=== PATIENT | male | born 1975 | race Caucasian/White ===

== ENCOUNTER 2018-07-27 09:43 | Emergency (ER) | payer MEDICARE, MEDICAID ==
[~2018-07-27] VITALS: Ht 182.9 cm; Wt 86.4 kg
[2018-07-27 09:56] VITALS: BP 132/90
--- NOTE | 2018-07-27 10:33 | NUR ---
KVNG MEEKS AT BEDSIDE.
[2018-07-27] MEDS ORDERED: CLON-527 PO (10:37)
[2018-07-27] MEDS ORDERED: AMPH20TA3 PO (10:37)
== END 2018-07-27 10:48 | disposition home or self-care (01) ==
LOC: ER 09:45
DX: F41.9 Anxiety disorder, unspecified (principal); Z76.0 Encounter for issue of repeat prescription; Z56.0 Unemployment, unspecified
CPT/HCPCS: 99283

== ENCOUNTER 2018-09-13 13:25 | Inpatient (IN) | payer MEDICARE, MEDICAID ==
[~2018-09-13] VITALS: Ht 172.7 cm; Wt 83.8 kg
[~2018-09-13 13:25] MED LIST: AMPH20TA3 PO; GABA600T13 PO; OLAN10TA3 PO
[2018-09-13] MEDS ORDERED: mag hydrox/Alum hydrox/simeth 30ml oral suspension PO PRN (13:45)
[2018-09-13] MEDS ORDERED: loperamide 2mg capsule PO PRN (13:45)
[2018-09-13] MEDS ORDERED: tuberculin, purif. prot. deriv. 5 units/0.1ml ID ONE (13:45)
[2018-09-13] MEDS ORDERED: magnesium hydroxide 30ml (MOM) UD suspension PO PRN (13:45)
--- NOTE | 2018-09-13 15:39 | NUR ---
Admit note: Pt admitted to [facility] on a 5150 for depression at 1420 as danger to self. Pt reports he is suffering from auditory hallucinations that tell him to kill himself. Pt reports feeling suicidal as a direct result of the voices. Pt brought to room 330A. Pt oriented to the unit. Pt cooperative with the admission process. Pt oriented to the unit. Medication rec completed.
[2018-09-13 15:57] VITALS: BP 130/91
--- NOTE | 2018-09-13 17:22 | NUR ---
ADDITIONAL ADMIT INFORMATION The patient's brother Felton Storm can be contacted at these numbers. [phone] or [phone]. The patient lives with his brother. According to patient's brother he had been living in [place] until June of this year and it became apparent he was "going downhill", so his brother Felton transported him from [place] and accepted him into his home. The patient started hearing voices in 2009. He from his and had multiple suicide attempts due to the unrelenting "tormenting voices." Brother states he isolates to his room a lot and is non violent. He sees Dr. 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
[2018-09-13 19:00] VITALS: BP 134/99
[2018-09-13] MEDS: hydrOXYzine 25 MG tablet PO PRN (19:26)
[2018-09-13] MEDS: LORazepam 1 MG tablet PO PRN (20:32)
[2018-09-13] MEDS: gabapentin 300mg capsule PO SCH (20:32)
[2018-09-13] MEDS: olanzapine 10mg tablet PO SCH (20:33)
--- NOTE | 2018-09-14 03:38 | NUR ---
Nursing Progress Note: Legal hold: 5150 Client on voluntary/involuntary status for DTS Report received from ALFONSO Orlando with use of SBAR. Why are they here: Pt admitted to [place] for [facility] on a 5150 for depression at 1420 as danger to self. Pt reports he is suffering from auditory hallucinations that tell him to kill himself. Pt reports feeling suicidal as a direct result of the voices. Assessment What has happened this shift: Patient is in his room at the change of shift. He presents as depressed AED making poor eye contact, talking very softly and when asked stating "I always experience depression." He states he has depression that sits at 4/10 at all times. He currently denies SI/HI, AH/VH this shift. He requests a dressing be placed on his arm where he has multiple self inflicted wells. Area is clean, antibiotic ointment is applied and Optifoam dressing applied to area. Patient is instructed to not pick at the area and that if he feels the urge, to find a staff member, patient verbally agrees. A late dinner tray is brought up to patient he happily accepts it. He remains in his room the remainder of the shift before turning to bed. S/I, H/I: Denies A/VH: Denies Sleep: Currently sleeping, see sleep assessment ADL's:Independent Group attendance: No groups this shift Were meds taken: Yes Any med S/E None noted Mental Status Exam Appearance: Clean, well groomed Eye contact: Fair Behavior: Isolative Speech: Normal volume, rate, rhythm Mood: Depressed Affect: Congruent to mood Thought process: Linear Thought Content: Focused on wound care/food Cognition: A & Ox4 Insight: Fair Judgment: Poor Interventions PRN's used: Atarax, Ativan Therapeutic interventions: 1:1 assessment , unit procedure education, medication administration/monitoring/education, encouragement to attend groups, therapeutic conversation & establishment of rapport, symptom identification and management, Q 15 min checks. Restraints/seclusion/emergency medication: None Justification of Continued Inpatient Treatment: Therapeutic support and medication management needed to provide stabilization, and prevent decompensation decreasing risk to patient for readmittance to in-patient unit.
[2018-09-14 07:59] LABS: CHOL/HDL RATIO 6.8 (0.00-4.99); CHOLESTEROL 238 MG/DL (0-200); HDL CHOLESTEROL 35 MG/DL (35-60); LDL CHOLESTEROL 170 MG/DL (50-100); TRIGLYCERIDES 186 MG/DL (20-135)
[2018-09-14 08:00] VITALS: BP 121/74
[2018-09-14] MEDS: gabapentin 300mg capsule PO SCH ×4 (08:06→20:50)
[2018-09-14 08:09] LABS: HEMOGLOBIN A1C 5.9 % (4.5-6.2)
[2018-09-14] MEDS: nicotine 21mg patch - 24 hr TD SCH (12:42)
[2018-09-14] MEDS: hydrOXYzine 25 MG tablet PO PRN (16:36)
--- NOTE | 2018-09-14 17:14 | NUR ---
Nursing Progress Note: Legal hold: 5150 Client on involuntary status for DTS Report received from ALFONSO Mcguire with use of SBAR. Why are they here: Pt admitted to [facility] on a 5150 for depression at 1420 for DTS. Pt reports he is suffering from auditory hallucinations that tell him to kill himself. Pt reports feeling suicidal as a direct result of the voices. Assessment What has happened this shift: Pt asleep at start of shift. Pt up to shower then to eat. Pt attended am group. He reports he continues to hear voices denies SI this morning. Pt presents w/flat depressed affect. Pt is quiet, isolates, walks slow w/his head down. Poor eye contact. New drsg applied to wells on left FA. Provided education on RALF encouraging him to keep all open areas covered and to not back any new sores. S/I, H/I: Denies; states when he is in a hospital they dont tell me to hurt myself. A/VH: Denies Sleep: SEE sleep assessment provided in EHR ADL's: Independent Group attendance: Yes w/prompting Were meds taken: Yes Any med S/E: None noted or reported Mental Status Exam Appearance: Clean, well groomed Eye contact: Poor Behavior: Isolative Speech: low volume, rate, rhythm Mood: Depressed Affect: restricted, congruent to mood Thought process: Linear Thought Content: unknown; appears to be RIS Cognition: A & Ox4 Insight: Fair Judgment: Poor Interventions PRN's used: Therapeutic interventions: 1:1 assessment , unit procedure education, medication administration/monitoring/education, encouragement to attend groups, therapeutic conversation & establishment of rapport, symptom identification and management, Q 15 min checks. Restraints/seclusion/emergency medication: None Justification of Continued Inpatient Treatment: Therapeutic support and medication management needed to provide stabilization of current A/H telling him to hurt and kill himself also prevent decompensation decreasing risk to patient for readmittance to in-patient unit.
[2018-09-14 19:00] VITALS: BP 130/89
[2018-09-14] MEDS: LORazepam 1 MG tablet PO PRN (20:50)
[2018-09-14] MEDS: olanzapine 10mg tablet PO SCH (20:50)
[2018-09-14] MEDS: acetaminophen 325mg tablet PO PRN (20:51)
--- NOTE | 2018-09-14 20:51 | NUR ---
Nicotine Patch: Nicotine patch is removed and discarded @2049.
--- NOTE | 2018-09-15 03:29 | NUR ---
Nursing Progress Note: Legal hold: 5150 Client on involuntary status for DTS Report received from ALFONSO Orlando with use of SBAR. Why are they here: Pt admitted to [facility] on a 5150 for depression at 1420 for DTS. Pt reports he is suffering from auditory hallucinations that tell him to kill himself. Pt reports feeling suicidal as a direct result of the voices. Assessment What has happened this shift: Patient stays in room and isolates all this shift. He sits in his room in the dark and does not interact with others. He denies current SI, Hi, VH. He states he is having AH but the voces are " Ho hum, boring voices" today. His wells on his harm are bandaged and the dressing is CDI. He has complaints of lower back/hip pain to his left side, Tylenol 650 mg is administered with good effect. He is compliant with all his evening medications. S/I, H/I: Denies A/VH: Denies VH, Confirms AH States they are "Ho hum, boring voices." They are not telling him to harm himself today. Sleep: Currently sleeping, see sleep assessment ADL's: Independent Group attendance: No groups this shift Were meds taken: Yes Any med S/E: None noted or reported Mental Status Exam Appearance: Clean, well groomed Eye contact: Poor Behavior: Isolative Speech: Low volume, rate, rhythm Mood: Depressed Affect: Restricted, congruent to mood Thought process: Linear Thought Content: Unknown; appears to be RIS Cognition: A & Ox4 Insight: Fair Judgment: Poor Interventions PRN's used: Tylenol, Ativan Therapeutic interventions: 1:1 assessment , unit procedure education, medication administration/monitoring/education, encouragement to attend groups, therapeutic conversation & establishment of rapport, symptom identification and management, Q 15 min checks. Restraints/seclusion/emergency medication: None Justification of Continued Inpatient Treatment: Therapeutic support and medication management needed to provide stabilization of current A/H telling him to hurt and kill himself also prevent decompensation decreasing risk to patient for readmittance to in-patient unit.
[2018-09-15 08:00] VITALS: BP 124/87
[2018-09-15] MEDS: atorvastatin 20mg tablet PO SCH (08:11)
[2018-09-15] MEDS: LORazepam 1 MG tablet PO PRN ×2 (08:11→18:00)
[2018-09-15] MEDS: gabapentin 300mg capsule PO SCH ×4 (08:11→20:25)
[2018-09-15] MEDS: OLANZAPINE 5 MG TABLET PO SCH (08:11)
[2018-09-15] MEDS: nicotine 21mg patch - 24 hr TD SCH (08:12)
[2018-09-15] MEDS: hydrOXYzine 25 MG tablet PO PRN (13:08)
--- NOTE | 2018-09-15 16:20 | NUR ---
Nursing Progress Note: Legal hold: 5150 Client on involuntary status for DTS Report received from ALFONSO Mcguire with use of SBAR. Why are they here: Pt admitted to [facility] on a 5150 for depression for DTS. Pt reports he is suffering from auditory hallucinations that tell him to kill himself. Pt reports feeling suicidal as a direct result of the voices. Assessment What has happened this shift: Pt asleep at start of shift. Pt isolates some of the shift however, with prompting and encouragement he did go to the am group and outdoors with the group in the late afternoon. He agrees the medications are helping with his voices but does not elaborate on how the medication helps. Both Ativan and hydroxyzine given as PRNs to decrease his anxiety. S/I, H/I: Denies A/VH: Denies Sleep: SEE sleep assessment ADL's: Independent Group attendance: AM and outside group Were meds taken: Yes Any med S/E: None noted or reported Mental Status Exam Appearance: Clean, well groomed Eye contact: Poor Behavior: Isolative Speech: low volume, rate, rhythm Mood: Depressed Affect: restricted, congruent to mood Thought process: Linear Thought Content: unknown; appears to be RIS Cognition: A /Ox4 Insight: Fair Judgment: Poor Interventions PRN's used: Therapeutic interventions: Therapeutic communication and active listening, medication administration/monitoring/education, encouragement to attend groups, symptom identification and management, Q 15 min checks. Restraints/seclusion/emergency medication: None Justification of Continued Inpatient Treatment: Therapeutic support and medication management needed to provide stabilization of current A/H telling him to hurt and kill himself also prevent decompensation decreasing risk to patient for readmittance to in-patient unit.
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
[2018-09-15 19:00] VITALS: BP 133/89
[2018-09-15] MEDS: olanzapine 10mg tablet PO SCH (20:25)
[2018-09-15] MEDS: acetaminophen 325mg tablet PO PRN (20:26)
--- NOTE | 2018-09-15 21:13 | NUR ---
Nursing Progress Note: Legal hold: 5150 Client on involuntary status for DTS Report received from ALFONSO Orlando with use of SBAR. Why are they here: Pt admitted to [facility] on a 5150 for depression for DTS. Pt reports he is suffering from auditory hallucinations that tell him to kill himself. Pt reports feeling suicidal as a direct result of the voices. Assessment What has happened this shift: Patient is in his room at change of shift laying in bed in the dark. He agrees to a 1:1 assessment at his bedside. His left forearm dressing is CDI at this time and no drainage or odor is noted. He denies SI/HI, and VH. He states he is still hearing voices but they are not telling him ot harm himself and that they have decreased a "tiny bit" since being on the unit. He expresses that he does feel more depressed today and rate it a 8/10, but states that going outside today helped a bit. He makes good eye contact during conversation and talks a bit more than yesterday. He joins other clients in the group room for evening snack before going back to bed. He is compliant for all evening medications. S/I, H/I: Denies A/VH: Confirms AH, denies VH Sleep: SEE sleep assessment ADL's: Independent Group attendance: No groups this shift Were meds taken: Yes Any med S/E: None noted or reported Mental Status Exam Appearance: Clean, well groomed Eye contact: Fair Behavior: Isolative Speech: low volume, rate, rhythm Mood: Depressed Affect: Restricted, congruent to mood Thought process: Linear Thought Content: Unknown; appears to be RIS Cognition: A /Ox4 Insight: Fair Judgment: Poor Interventions PRN's used: Tylenol Therapeutic interventions: Therapeutic communication and active listening, medication administration/monitoring/education, encouragement to attend groups, symptom identification and management, Q 15 min checks. Restraints/seclusion/emergency medication: None Justification of Continued Inpatient Treatment: Therapeutic support and medication management needed to provide stabilization of current A/H telling him to hurt and kill himself also prevent decompensation decreasing risk to patient for readmittance to in-patient unit.
--- NOTE | 2018-09-15 22:56 | NUR ---
Nursing Progress Note: Legal hold: 5250 Client on involuntary status for GD Report received from ALFONSO Orlando with use of SBAR. Why are they here: On September 03, 2018 client presented to [facility] with vaginal bleeding. During admission client delivered a female who is currently in NICU. Per report the clients behavior was disorganized and client made delusional statements regarding "stalkers" and the "government". Drug tox screen was positive for Meth and THC. Assessment What has happened this shift: Patient is sleeping at the change of shift. When awoken she is focused on basic needs like food and water. She presents as depressed and extremely withdrawn. She is hard to engage in conversation and even with open ended questions she responds in short one word answers. She denies SI/HI, AH/VH. She then returns to bed after eating her evening snack and promptly falls back asleep. S/I, H/I: Denies A/VH: Denies Sleep: SEE sleep assessment ADL's: Independent Group attendance: No groups this shift Were Meds taken: Yes Any med S/E: None observed Mental Status Exam Appearance: Appropriately dressed in street clothes Eye contact: Fair, keeps her gaze down most of the time Behavior: Isolative, does not interact much with others. Speech: Soft, does not engage in conversation Mood: Depressed Affect: Flat Thought process: congruent w/mood Thought Content: Preoccupied with clothes and food this shift Cognition: Poverty of content Insight: Poor Judgment: Poor Interventions PRN's used: None Therapeutic interventions: 1:1 assessment, therapeutic conversation, medication administration/education/monitoring, reality orientation, limit setting, redirection, positive reinforcement, encouragement to attend groups, Q 15 min safety checks. Restraints/seclusion/emergency medication: none Justification of Continued Inpatient Treatment: Patient continues to demonstrate poor judgment, and increasing depression. Therapeutic support and medication management needed to provide stabilization, and prevent decompensation decreasing risk to patient for readmittance to in-patient unit. Addendum: 09/15/18 at 2302 by Eleonora Mcclure RN Error, Posted in wrong patients chart.
[2018-09-16 07:23] VITALS: BP 112/84
[2018-09-16] MEDS: OLANZAPINE 5 MG TABLET PO SCH (07:47)
[2018-09-16] MEDS: gabapentin 300mg capsule PO SCH ×4 (07:48→21:01)
[2018-09-16] MEDS: nicotine 21mg patch - 24 hr TD SCH ×2 (07:49→08:12)
[2018-09-16] MEDS: atorvastatin 20mg tablet PO SCH (07:49)
[2018-09-16] MEDS: acetaminophen 325mg tablet PO PRN ×2 (07:52→21:01)
--- NOTE | 2018-09-16 16:22 | NUR ---
Nursing Progress Note: Legal hold: 5150 Client on involuntary status for DTS Report received from ALFONSO Mcguire with use of SBAR. Why are they here: Pt admitted to [facility] on a 5150 for depression at 1420 for DTS. Pt reports he is suffering from auditory hallucinations that tell him to kill himself. Pt reports feeling suicidal as a direct result of the voices. Assessment What has happened this shift: Isolated in his room for the majority of the shift. Out for meals. Eats poorly and quickly. Returns immediately to his room. When asked to explain the importance of being in his room, patient stated "Being around people makes me feel anxious." When asked the meaning behind staying in his bed, patient stated "I just lay in bed and listen to my voices." Understates the suffering he is experiences due to AH. Believes "they'll always be be there. Here I feel safe." in reference to self-harm behavior. Has no hope at present that medication will be able to diminish or eliminate the voices. States he was once happy "when I was . My ended the marriage. She didn't want to be with someone on disability." Patient does not speak unless spoken to. Also he provides the minimum amount of information to answer questions posed by staff. S/I, H/I: Denies; states when he is in a hospital they don't tell me to hurt myself. A/VH: Denies Sleep: SEE sleep assessment provided in EHR ADL's: Independent Group attendance: Not today Were meds taken: Yes Any med S/E: None noted or reported Mental Status Exam Appearance: Clean, well groomed Eye contact: Poor Behavior: Isolative Speech: low volume, rate, rhythm Mood: Depressed Affect: restricted, congruent to mood Thought process: Linear Thought Content: unknown; appears to be RIS Cognition: A & Ox4 Insight: Fair Judgment: Poor Interventions PRN's used: Therapeutic interventions: 1:1 assessment , unit procedure education, medication administration/monitoring/education, encouragement to attend groups, therapeutic conversation & establishment of rapport, symptom identification and management, Q 15 min checks. Restraints/seclusion/emergency medication: None Justification of Continued Inpatient Treatment: Therapeutic support and medication management needed to provide stabilization of current A/H telling him to hurt and kill himself also prevent decompensation decreasing risk to patient for readmittance to in-patient unit.
[2018-09-16 20:00] VITALS: BP 126/98
[2018-09-16] MEDS: hydrOXYzine 25 MG tablet PO PRN (21:01)
[2018-09-16] MEDS: OLANZapine 5mg rapidly disint. tablet PO SCH (21:02)
[2018-09-16] MEDS ORDERED: NICOTINE POLACRILEX 4 MG LOZENGE BC PRN (21:40)
--- NOTE | 2018-09-16 23:59 | NUR ---
Nursing Progress Note: Legal hold: VOL for DTS Report received from ALFONSO Orlando with use of SBAR. Why are they here: Pt admitted to [facility] on a 5150 for depression for DTS. Pt reports he is suffering from auditory hallucinations that tell him to kill himself. Pt reports feeling suicidal as a direct result of the voices. Assessment What has happened this shift: Pt in room looking out the window at change of shift. He attended HS snack then returned to his room to sleep. During 1:1, he stated "I feel 9/10 on the good scale, I am feeling better." Voices are still present, but "less and more in the background" and saying "get a job or go help others". Pt states even though the voices are making positive statements, they are irksome. Pt denies SI and says he feels a "a little anxious". He states he doesn't like going to groups because it makes him nervous that they will make him talk. RN encouraged to go, and be honest about feeling that way with the launch leader. Left forearm dressing CDI. He requested an additional snack before turning in to sleep for the evening. S/I, H/I: Denies A/VH: Denies VH, +AH: positive statements (see above) Sleep: See Sleep Hour Charting ADL's: Independent Group attendance:Y - HS Snack Were meds taken: Y Any med S/E: None noted or reported Mental Status Exam Appearance: Clean, well groomed in personal clothing and nonskid socks Eye contact: Intermittent Behavior: Withdrawn to room except to attend snack Speech: WNL Mood: "I feel better" Affect: Blunted Thought process: Linear Thought Content: the voices bothering him Cognition: A&Ox4 Insight: Fair Judgment: Poor to Fair Interventions PRN's used: Tylenol, Atarax Therapeutic interventions: Therapeutic communication and active listening, medication administration/monitoring/education, encouragement to attend groups, symptom identification and management, Q 15 min checks. Restraints/seclusion/emergency medication: None Justification of Continued Inpatient Treatment: Therapeutic support and medication management needed to provide stabilization of current A/H to prevent decompensation decreasing risk to patient for readmittance to in-patient unit.
[2018-09-17 08:00] VITALS: BP 106/79
[2018-09-17] MEDS: atorvastatin 20mg tablet PO SCH (08:00)
[2018-09-17] MEDS: gabapentin 300mg capsule PO SCH ×4 (08:04→20:53)
[2018-09-17] MEDS: OLANZAPINE 5 MG TABLET PO SCH (08:04)
[2018-09-17] MEDS: NICOTINE POLACRILEX 2 MG LOZENGE BC PRN ×3 (10:03→19:04)
[2018-09-17] MEDS: hydrOXYzine 25 MG tablet PO PRN (16:44)
--- NOTE | 2018-09-17 16:48 | NUR ---
Nursing Progress Note: Legal hold: 525 DTS Report received from Saba Wu RN with use of SBAR. Why are they here: Pt admitted to [facility] on a 5150 for depression for DTS. Pt reports he is suffering from auditory hallucinations that tell him to kill himself. Pt reports feeling suicidal as a direct result of the voices. Assessment What has happened this shift: Patient observed sleeping at change of shift. He is awoken just prior to breakfast and joins others in the group room for breakfast. He quickly eats and then returns to his room. He takes his morning medications but refuses to take Lipitor. He states that it makes it hard for him to stand and makes his knees hurt. He says that he hears voices all the time but that when he tries to figure out what they say he cannot. He states they increase when he is alone but that he does not like being around others. He reports attempting group but not liking to have to share. He is encouraged to attend group and pass on sharing. He states that he will try. Patient does attend both groups today. He reports that he mostly listened but did share as well. He states that he enjoys the window in his room and finds the view more therapeutic than anything else. He is friendly throughout the day. He c/o nicotine cravings twice and is provided lozenges. He states that he is doing well and has no issues. *Wound cleaned and dressing changed.* S/I, H/I: none reported A/VH: reports constant AH, unable to determine what they are saying at this time Sleep: 7.25hrs NOC ADL's: Independent Group attendance:yes Were meds taken: refused Lipitor Any med S/E: none reported, no IMs or tremors observed Mental Status Exam Appearance: clean, dressed in own clothing Eye contact: avoided, looks down often during conversation Behavior: calm, cooperative, moments of anxiety Speech: soft tone, normal rate and rhythm Mood: reports good mood Affect: restricted with brightening Thought process: Linear Thought Content: no delusional thought content expressed, focused on feeling better Cognition: A&Ox4 Insight: Fair Judgment: Poor to Fair Interventions PRN's used: nicotine lozenges xs2 and Atarax for anxiety Therapeutic interventions: Provided therapeutic assessment, maintained safe therapeutic milieu, provided active listening with positive feedback, medication education as needed, monitored for change in behavior and needed intervention. Q 15 min checks. Restraints/seclusion/emergency medication: None Justification of Continued Inpatient Treatment: Therapeutic support and medication management needed to provide stabilization of current A/H to prevent decompensation decreasing risk to patient for readmittance to in-patient unit. Addendum: 09/17/18 at 1652 by Jaja Michaels RN Legal hold: voluntary
[2018-09-17 20:00] VITALS: BP 140/99
[2018-09-17] MEDS: acetaminophen 325mg tablet PO PRN (20:54)
[2018-09-17] MEDS: OLANZapine 5mg rapidly disint. tablet PO SCH (20:54)
--- NOTE | 2018-09-17 22:01 | NUR ---
Nursing Progress Note: Legal hold: VOL for DTS Report received from ALFONSO Orlando with use of SBAR. Why are they here: Pt admitted to [facility] on a 5150 for depression for DTS. Pt reports he is suffering from auditory hallucinations that tell him to kill himself. Pt reports feeling suicidal as a direct result of the voices. Assessment What has happened this shift: Pt in room looking out the window at change of shift. He attended HS snack then watched some TV with peers before returing to his room. During 1:1, he stated "I feel much better since being admitted. I feel good today." He continued, "The voices are saying neutral things, I can't remember what they say exactly, its more like in the background really faint." RN reinforced pt going to groups, pt states "I went even though I don't like to share. I'll keep going and maybe I'll share more next time." Left forearm dressing CDI. S/I, H/I: Denies A/VH: Denies VH, +AH: "neutral statements" "background noise" Sleep: See Sleep Hour Charting ADL's: Independent Group attendance:Y - HS Snack Were meds taken: Y Any med S/E: None noted or reported Mental Status Exam Appearance: Clean, well groomed in personal clothing and nonskid socks Eye contact: Intermittent Behavior: Withdrawn to room except to attend snack Speech: WNL Mood: "Good" Affect: Blunted with some brightening Thought process: Linear Thought Content: Focusing on overall wellness Cognition: A&Ox4 Insight: Fair to good Judgment: Fair to good Interventions PRN's used: Tylenol Therapeutic interventions: Therapeutic communication and active listening, medication administration/monitoring/education, encouragement to attend groups, symptom identification and management, Q 15 min checks. Restraints/seclusion/emergency medication: None Justification of Continued Inpatient Treatment: Therapeutic support and medication management needed to provide stabilization of current A/H to prevent decompensation decreasing risk to patient for readmittance to in-patient unit.
[2018-09-18] MEDS: atorvastatin 20mg tablet PO SCH (08:00)
[2018-09-18] MEDS: gabapentin 300mg capsule PO SCH ×4 (08:03→20:06)
[2018-09-18] MEDS: NICOTINE POLACRILEX 2 MG LOZENGE BC PRN ×4 (08:03→20:24)
[2018-09-18] MEDS: OLANZAPINE 5 MG TABLET PO SCH (08:04)
[2018-09-18 08:06] VITALS: BP 121/86
[2018-09-18] MEDS: acetaminophen 325mg tablet PO PRN ×2 (10:40→20:07)
--- NOTE | 2018-09-18 12:56 | NUR ---
Initial: patient eating 100% of meals today. Average PO intake 75-100% with some meals earlier in admission average 25-49%. Overall meeting his nutrition needs. Recommend: 1. continue vegetarian diet 2. weekly weights Addendum: 09/18/18 at [address] Amended: Links added.
--- NOTE | 2018-09-18 16:51 | NUR ---
Nursing Progress Note: Legal hold: voluntary Report received from Saba Wu RN with use of SBAR. Why are they here: Pt admitted to [facility] on a 5150 for depression for DTS. Pt reports he is suffering from auditory hallucinations that tell him to kill himself. Pt reports feeling suicidal as a direct result of the voices. Assessment What has happened this shift: Patient observed sleeping at change of shift. Just before breakfast he wakes. He states that he slept OK the night before, waking occasionally throughout the night. Patient joins others in the group room for breakfast and then returns to his room to take his medications. He denies distinguishable AH and does not want to harm himself. He states that the medication has been helpful in treating his symptoms. He is observed throughout the day spending appropriate amount of time alone as well as with others. He paces the rivera, reads books, rests and watches t.v.. S/I, H/I: none reported A/VH: reports constant AH, unable to determine what they are saying at this time Sleep: 7.25hrs NOC and rested during the day ADL's: Independent Group attendance:yes, afternoon group Were meds taken: refused Lipitor Any med S/E: none reported, no IMs or tremors observed Mental Status Exam Appearance: clean, dressed in own clothing Eye contact: improved, will look away with prolong eye contact Behavior: calm, cooperative, moments of anxiety Speech: soft tone, normal rate and rhythm Mood: reports good mood Affect: restricted with brightening Thought process: Linear Thought Content: no delusional thought content expressed, focused on feeling better Cognition: A&Ox4 Insight: Fair Judgment: Poor to Fair Interventions PRN's used: nicotine lozenges xs2 and Tylenol for pain Therapeutic interventions: Provided therapeutic assessment, maintained safe therapeutic milieu, provided active listening with positive feedback, medication education as needed, monitored for change in behavior and needed intervention. Q 15 min checks. Restraints/seclusion/emergency medication: None Justification of Continued Inpatient Treatment: Patient recently suffering from negative and command audio hallucinations telling him to harm himself. Patient presented to unit suicidal with self inflicted wells on his arm. Therapeutic support and medication management needed to provide stabilization, prevent decompensation, decreasing risk to patient for readmittance to in-patient unit.
[2018-09-18 20:00] VITALS: BP 144/94
[2018-09-18] MEDS: OLANZapine 5mg rapidly disint. tablet PO SCH (20:06)
[2018-09-18] MEDS: mirtazapine 15mg tablet PO SCH (20:06)
--- NOTE | 2018-09-18 23:10 | NUR ---
Nursing Progress Note: Legal hold: voluntary Report received from ALFONSO Orlando with use of SBAR. Why are they here: Pt admitted to [facility] on a 5150 for depression for DTS. Pt reports he is suffering from auditory hallucinations that tell him to kill himself. Pt reports feeling suicidal as a direct result of the voices. Assessment What has happened this shift: The patient has been up on the unit but withdrawn and quiet. During the evening assessment he gave minimal eye contact. He stated that his appetite has been good. Stated last night he slept poorly last night. He stated this evening his anxiety was relatively low. He stated that he is hearing voices but stated half the time he can't understand what they are saying but they have been telling him "get a job" "way to go" "cheer up" He denies feeling paranoid. He denies tactile or visual hallucinations. He stated that he felt his mood was "stable" He denies significant depression. His brother came to visit and he states he is supportive. S/I, H/I: none reported A/VH: He denies visual, tactile hallucinations and paranoia. Continues to have auditory hallucinations Sleep: ADL's: Independent Group attendance: No PM group Were meds taken: Yes Any med S/E: none reported or observed Mental Status Exam Appearance: clean, dressed in own clothing Eye contact: Poor eye contact Behavior: calm, cooperative, moments of anxiety Speech: soft tone, normal rate and rhythm Mood: reports good mood Affect: restricted Thought process: Linear Thought Content: no delusional thought content expressed Cognition: A&Ox4 Insight: Fair Judgment: Poor to Fair Interventions PRN's used: nicotine lozenges xs2 and Tylenol for pain Therapeutic interventions: Provided therapeutic assessment, maintained safe therapeutic milieu, provided active listening with positive feedback, medication education as needed, monitored for change in behavior and needed intervention. Q 15 min checks. Restraints/seclusion/emergency medication: None Justification of Continued Inpatient Treatment: Patient recently suffering from negative and command audio hallucinations telling him to harm himself. Patient presented to unit suicidal with self inflicted wells on his arm. Therapeutic support and medication management needed to provide stabilization, prevent decompensation, decreasing risk to patient for readmittance to in-patient unit.
[2018-09-19 07:19] VITALS: BP 115/82
[2018-09-19] MEDS: OLANZAPINE 5 MG TABLET PO SCH (08:09)
[2018-09-19] MEDS: gabapentin 300mg capsule PO SCH ×4 (08:09→21:02)
[2018-09-19] MEDS: NICOTINE POLACRILEX 2 MG LOZENGE BC PRN ×3 (09:05→17:53)
--- NOTE | 2018-09-19 12:30 | NUR ---
1:1 DISCHARGE PLANNING: SW contacted [facility] to learn of pt's assigned medical home. SW informed that pt will be assigned to [facility]. FILI will schedule aftercare tx w/ Dr. Poole for post discharge tx. CAMILLE MarcosW
--- NOTE | 2018-09-19 16:22 | NUR ---
Nursing Progress Note: Legal hold: voluntary Report received from ALFONSO Shelton with use of SBAR. Why are they here: Pt admitted to [facility] on a 5150 for depression for DTS. Pt reported suffering from auditory hallucinations that told him to kill himself. Pt reported feeling suicidal as a direct result of the voices. Assessment What has happened this shift: Patient is observed walking around at change of shift, he reports that he slept well the night before and straight through the night. He says that he is having AH and that they tell him to take a shower. He eats his breakfast with others in the group room and then returns to his room to rest. He takes all his medications without any issue. He does not attend group and states that it is hard for him to sit still. He reports that in the middle of the day he feels anxious but when offered Atarax, or Ativan he declines. He is calm and pleasant throughout the day. S/I, H/I: none reported A/VH: reports AH that tell him to take a shower Sleep: 7hrs NOC and rested during the day ADL's: Independent Group attendance: states he tried Were meds taken: yes Any med S/E: none reported, no IMs or tremors observed Mental Status Exam Appearance: clean, dressed in own clothing but changed into green scrubs Eye contact: direct Behavior: friendly and cooperative, moments of anxiety Speech: soft tone, normal rate and rhythm Mood: reports good mood Affect: appropriate, congruent to mood Thought process: Linear Thought Content: no delusional thought content expressed, focused on feeling better Cognition: A&Ox4 Insight: Fair Judgment: Poor to Fair Interventions PRN's used: nicotine lozenges xs2 Therapeutic interventions: Provided therapeutic assessment, maintained safe therapeutic milieu, provided active listening with positive feedback, medication education as needed, monitored for change in behavior and needed intervention. Q 15 min checks. Restraints/seclusion/emergency medication: None Justification of Continued Inpatient Treatment: Patient recently suffering from negative and command audio hallucinations telling him to harm himself. Patient presented to unit suicidal with self inflicted wells on his arm. Therapeutic support and medication management needed to provide stabilization, prevent decompensation, decreasing risk to patient for readmittance to in-patient unit.
[2018-09-19 20:00] VITALS: BP 134/92
[2018-09-19] MEDS: acetaminophen 325mg tablet PO PRN (21:02)
[2018-09-19] MEDS: OLANZapine 5mg rapidly disint. tablet PO SCH (21:02)
[2018-09-19] MEDS: mirtazapine 15mg tablet PO SCH (21:02)
--- NOTE | 2018-09-20 00:25 | NUR ---
Nursing Progress Note: Legal hold: VOL for DTS Report received from ALFONSO Ross with use of SBAR. Why are they here: Pt admitted to [facility] on a 5150 for depression for DTS. Pt reports he is suffering from auditory hallucinations that tell him to kill himself. Pt reports feeling suicidal as a direct result of the voices. Assessment What has happened this shift: Pt walking the halls at change of shift. During 1:1, pt stated he is feeling "much better" and that the voices have faded significantly since his admittance. "I think the Zyprexa is really helping." RN stated that pt appears anxious; Pt replied "I do get a little antsy that's why I walk around or watch TV. It helps quiet the voices. It's when I'm still the voices are clearer. The Remeron is helping me relax and sleep at night, and the voices aren't saying anything negative, I can just notice them more if I'm not doing anything." He attended HS snack then walked around before returning to his room. Pt's wound is open to air; pt not picking it and it is healing well. No drainage or odor present. S/I, H/I: Denies A/VH: Denies VH, +AH: "background noise, can't remember what they say but it's not negative" Sleep: See Sleep Hour Charting ADL's: Independent Group attendance:Y - HS Snack Were meds taken: Y Any med S/E: None noted or reported Mental Status Exam Appearance: Clean, well groomed in personal clothing and nonskid socks Eye contact: Intermittent Behavior: Walking halls Speech: Clear Mood: "Much better" Affect: Blunted with some brightening Thought process: Linear Thought Content: Focusing on overall wellness Cognition: A&Ox4 Insight: Fair to good Judgment: Fair to good Interventions PRN's used: Tylenol Therapeutic interventions: Therapeutic communication and active listening, medication administration/monitoring/education, encouragement to attend groups, symptom identification and management, Q 15 min checks. Restraints/seclusion/emergency medication: None Justification of Continued Inpatient Treatment: Therapeutic support and medication management needed to provide stabilization of current A/H to prevent decompensation decreasing risk to patient for readmittance to in-patient unit.
[2018-09-20 07:36] VITALS: BP 126/91
[2018-09-20] MEDS: gabapentin 300mg capsule PO SCH ×4 (08:21→20:46)
[2018-09-20] MEDS: OLANZAPINE 5 MG TABLET PO SCH (08:21)
[2018-09-20] MEDS: NICOTINE POLACRILEX 2 MG LOZENGE BC PRN ×4 (08:51→19:07)
[2018-09-20] MEDS: acetaminophen 325mg tablet PO PRN (10:14)
--- NOTE | 2018-09-20 12:38 | NUR ---
1:1 DISCHARGE PLANNING SW faxed completed new patient packet to [facility] for pt discharge appointment scheduling. FILI also faxed pt notes, medications and History & Physical information. This senior technical writer will schedule a discharge appointment with [facility] on Monday, September 24, when she returns for her regularly scheduled day. OWEN Marcos
[2018-09-20] MEDS: OLANZapine 2.5MG tablet PO SCH (13:33)
--- NOTE | 2018-09-20 15:01 | NUR ---
Nursing Progress Note: Legal hold: VOL for DTS Report received from SHAKIRA Shelton with use of SBAR. Why are they here: Pt admitted to [facility] on a 5150 for depression for DTS. Pt reported he was suffering from auditory hallucinations that tell him to kill himself. Pt reported feeling suicidal as a direct result of the voices. Assessment What has happened this shift: Pt was awake and laying in bed at the change of shift. He was cooperative with assessment. The pt reported anxiety of 8/10, but refused medication for anxiety. Pt was using coping skills and walking to help relieve anxiety. He denied depression and SI. He said he was still hearing voices talking, but the voices are not telling him to do anything. He said, "Voices in my head, thinking them." He was out of him room frequently walking in the halls. PRN Nicotine Lozenge administered x2. He requested only one Nicotine lozenge instead of two. 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 S/I, H/I: Denies A/VH: Denies VH but states he hears voices talking. Sleep: Napped ADL's: Independent Group attendance: No Were meds taken: Yes Any med S/E: None noted or reported Mental Status Exam Appearance: Neat and clean Eye contact: Intermittent Behavior: Occasionally walks in the halls Speech: Normal rate and rhythm Mood: Anxious Affect: Constricted Thought process: Linear and connected Thought Content: Hearing voices Cognition: A&Ox4 Insight: Fair Judgment: Fair Interventions PRN's used: Tylenol, Nicotine lozenge Therapeutic interventions: Therapeutic communication and active listening, medication administration/monitoring/education, encouragement to attend groups, symptom identification and management, maintained therapeutic milieu, Q 15 min checks. Restraints/seclusion/emergency medication: None Justification of Continued Inpatient Treatment: Therapeutic support and medication management needed to provide stabilization of current A/H to prevent decompensation decreasing risk to patient for readmittance to in-patient unit. Addendum: 09/20/18 at 1714 by Callie Velazquez RN Amend: Pt's current wt by standing scale is 83.8. Pt's wt in ER on 09/12 was 80 kg. There is a discrepancy between today's wt and the 63.9 kg wt charted in pt's admission assessment.
[2018-09-20 19:00] VITALS: BP 124/95
[2018-09-20] MEDS: mirtazapine 15mg tablet PO SCH (20:43)
[2018-09-20] MEDS: OLANZapine 5mg rapidly disint. tablet PO SCH (20:44)
--- NOTE | 2018-09-21 01:54 | NUR ---
Nursing Progress Note: Legal hold: VOL for DTS Report received from ALFONSO Ross with use of SBAR. Why are they here: Pt admitted to [facility] on a 5150 for depression for DTS. Pt reports he is suffering from auditory hallucinations that tell him to kill himself. Pt reports feeling suicidal as a direct result of the voices. Assessment What has happened this shift: Pt in walking back to his room from group room at shift change. This was first time with patient, established rapport. Pt allowed 1:1 assessment at bedside. Pt was cooperative and medication compliant. Pt reports anxiety 3/10 and depression 3/10. Pt denies SI and states the voices have decreased. Pt states he is hoping he goes home soon and will be discharged home to brothers. When asked about wounds on arms, pt does acknowledge it was due to self-harm, but would not elaborate. 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, no group Were meds taken: Medication compliant Any med S/E: None reported or observed Mental Status Exam Appearance: Clean, well groomed in personal clothing and nonskid socks Eye contact: Intermittent Behavior: Cooperative, quiet Speech: Normal rate and rhythm Mood: Depressed Affect: Constricted Thought process: Linear Thought Content: Looking forward to discharge Cognition: A&Ox4 Insight: Fair to good Judgment: Fair to good Interventions PRN's used: None Therapeutic interventions: Therapeutic communication and active listening, medication administration/monitoring/education, encouragement to attend groups, symptom identification and management, Q 15 min checks. Restraints/seclusion/emergency medication: None Justification of Continued Inpatient Treatment: Therapeutic support and medication management needed to provide stabilization of current A/H to prevent decompensation decreasing risk to patient for readmittance to in-patient unit.
[2018-09-21 08:00] VITALS: BP 122/84
[2018-09-21] MEDS: gabapentin 300mg capsule PO SCH ×4 (08:33→20:36)
[2018-09-21] MEDS: OLANZAPINE 5 MG TABLET PO SCH (08:33)
[2018-09-21] MEDS: NICOTINE POLACRILEX 2 MG LOZENGE BC PRN ×4 (08:44→19:40)
[2018-09-21] MEDS: OLANZapine 2.5MG tablet PO SCH (13:03)
--- NOTE | 2018-09-21 16:14 | NUR ---
Nursing Progress Note: Legal hold: VOL for DTS Report received from SHAKIRA Fishman with use of SBAR. Why are they here: Pt admitted to [facility] on a 5150 for depression for DTS. Pt reported he was suffering from auditory hallucinations that tell him to kill himself. Pt reported feeling suicidal as a direct result of the voices. Assessment What has happened this shift: Pt was asleep at change of shift and up for breakfast. Patient was cooperative with assessment. Patient states he is depressed but denies suicidal ideation. Patient states he is still hearing voices but the voices are not telling him to hurt himself. Patient has healing wounds on L arm. S/I, H/I: Denies A/VH: Denies VH but states he hears voices talking. Sleep: Napped ADL's: Independent Group attendance: No Were meds taken: Yes Any med S/E: None noted or reported Mental Status Exam Appearance: Neat and clean Eye contact: Intermittent Behavior: Occasionally walks in the halls Speech: Normal rate and rhythm Mood: Anxious Affect: Constricted Thought process: Linear and connected Thought Content: Hearing voices Cognition: A&Ox4 Insight: Fair Judgment: Fair Interventions PRN's used: Nicotine lozenge Therapeutic interventions: Therapeutic communication and active listening, medication administration/monitoring/education, encouragement to attend groups, symptom identification and management, maintained therapeutic milieu, Q 15 min checks. Restraints/seclusion/emergency medication: None Justification of Continued Inpatient Treatment: Therapeutic support and medication management needed to provide stabilization of current A/H to prevent decompensation decreasing risk to patient for readmittance to in-patient unit.
[2018-09-21 20:00] VITALS: BP 143/99
[2018-09-21] MEDS: OLANZapine 5mg rapidly disint. tablet PO SCH (20:36)
[2018-09-21] MEDS: mirtazapine 15mg tablet PO SCH (20:37)
--- NOTE | 2018-09-22 00:05 | NUR ---
Nursing Progress Note: Legal hold: VOL for DTS Report received from ALFONSO Ross with use of SBAR. Why are they here: Pt admitted to [facility] on a 5150 for depression for DTS. Pt reports he is suffering from auditory hallucinations that tell him to kill himself. Pt reports feeling suicidal as a direct result of the voices. Assessment What has happened this shift: Pt sitting in rec room at shift change. Pt is coopertive with 1:1 assessment. RN assessed healing left arm wells. It appears pt was scratching at his arms AEB of redness. As per wound care order, lotion was applied and this helped with the itch. Pt reports his depression is 3/10 and anxiety 2/10. Pt states his voices are telling him "not to scratch." Pt took HS med then retired to bed. S/I, H/I: None reported or observed A/VH: Denies VH, +AH: voices telling pt not to scratch at healing burn scars Sleep: Pt currently sleeping ADL's: Independent Group attendance: production shift supervisor, no group Were meds taken: Medication compliant Any med S/E: None reported or observed Mental Status Exam Appearance: Clean, well groomed in personal clothing Eye contact: Intermittent Behavior: Cooperative, quiet Speech: Normal rate and rhythm Mood: "Feeling better" Affect: Constricted Thought process: Linear Thought Content: Looking forward to discharge Cognition: A&Ox4 Insight: Fair Judgment: Fair Interventions PRN's used: Nicotine lozenge Therapeutic interventions: Therapeutic communication and active listening, medication administration/monitoring/education, encouragement to attend groups, symptom identification and management, Q 15 min checks. Restraints/seclusion/emergency medication: None Justification of Continued Inpatient Treatment: Therapeutic support and medication management needed to provide stabilization of current A/H to prevent decompensation decreasing risk to patient for readmittance to in-patient unit.
--- NOTE | 2018-09-22 00:10 | NUR ---
Nursing Progress Note: Legal hold: VOL for DTS Report received from ALFONSO Ross with use of SBAR. Why are they here: Pt admitted to [facility] on a 5150 for depression for DTS. Pt reports he is suffering from auditory hallucinations that tell him to kill himself. Pt reports feeling suicidal as a direct result of the voices. Assessment What has happened this shift: Pt sitting in rec room at shift change. Pt is cooperative with 1:1 assessment. RN assessed healing left arm wells. It appears pt was scratching at his arms AEB of redness. As per wound care order, lotion was applied and this helped with the itch. Pt reports his depression is 3/10 and anxiety 2/10. Pt states his voices are telling him "not to scratch." Pt took HS med then retired to bed. S/I, H/I: None reported or observed A/VH: Denies VH, +AH: voices telling pt not to scratch at healing burn scars Sleep: Pt currently sleeping ADL's: Independent Group attendance: hourly shift manager, no group Were meds taken: Medication compliant Any med S/E: None reported or observed Mental Status Exam Appearance: Clean, well groomed in personal clothing Eye contact: Intermittent Behavior: Cooperative, quiet Speech: Normal rate and rhythm Mood: "Feeling better" Affect: Constricted Thought process: Linear Thought Content: Looking forward to discharge Cognition: A&Ox4 Insight: Fair Judgment: Fair Interventions PRN's used: Nicotine lozenge Therapeutic interventions: Therapeutic communication and active listening, medication administration/monitoring/education, encouragement to attend groups, symptom identification and management, Q 15 min checks. Restraints/seclusion/emergency medication: None Justification of Continued Inpatient Treatment: Therapeutic support and medication management needed to provide stabilization of current A/H to prevent decompensation decreasing risk to patient for readmittance to in-patient unit.
[2018-09-22] MEDS: gabapentin 300mg capsule PO SCH ×4 (07:56→21:01)
[2018-09-22] MEDS: OLANZAPINE 5 MG TABLET PO SCH (07:56)
[2018-09-22 08:04] VITALS: BP 115/89
[2018-09-22] MEDS: NICOTINE POLACRILEX 2 MG LOZENGE BC PRN ×3 (08:07→16:55)
[2018-09-22] MEDS: OLANZapine 2.5MG tablet PO SCH (13:45)
--- NOTE | 2018-09-22 14:44 | NUR ---
Nursing Progress Note: Legal hold: Voluntary Report received from SHAKIRA Fishman with use of SBAR. Why are they here: Pt admitted to [facility] on a 5150 for depression for DTS. Pt reported he was suffering from auditory hallucinations that tell him to kill himself. Pt reported feeling suicidal as a direct result of the voices. Assessment What has happened this shift: Received Pt in bed asleep w/o distress after change of shift. He awoke for breakfast and ate with others appropriately. Pt is calm and cooperative and willing to engage in assessment and conversation with RN. Reports he is getting his head straight while here and it has been helpful. 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 Took naps in AM and PM and attended groups. Reports AH starting at 39 y/o and they say both good and bad things about him. Patient continues to endorse being depressed but denies suicidal ideation. S/I, H/I: Denies A/VH: Denies VH but states he hears voices talking. Sleep: Napped ADL's: Independent Group attendance: Yes Were meds taken: Yes Any med S/E: None noted or reported Mental Status Exam Appearance: Neat and clean Eye contact: Intermittent Behavior: Occasionally walks in the halls Speech: Normal rate and rhythm Mood: Anxious Affect: Constricted Thought process: Linear and connected Thought Content: Hearing voices Cognition: A&Ox4 Insight: Fair Judgment: Fair Interventions PRN's used: Nicotine lozenges Therapeutic interventions: Therapeutic communication and active listening, medication administration/monitoring/education, encouragement to attend groups, symptom identification and management, maintained therapeutic milieu, Q 15 min checks. Restraints/seclusion/emergency medication: None Justification of Continued Inpatient Treatment: Therapeutic support and medication management needed to provide stabilization of current A/H to prevent decompensation decreasing risk to patient for readmittance to in-patient unit.
[2018-09-22 19:51] VITALS: BP 126/89
[2018-09-22] MEDS: mirtazapine 15mg tablet PO SCH (21:02)
[2018-09-22] MEDS: OLANZapine 5mg rapidly disint. tablet PO SCH (21:02)
--- NOTE | 2018-09-22 22:02 | NUR ---
Nursing Progress Note: Legal hold: VOL for DTS Report received from ALFONSO Jaimes with use of SBAR. Why are they here: Pt admitted to [facility] on a 5150 for depression for DTS. Pt reports he is suffering from auditory hallucinations that tell him to kill himself. Pt reports feeling suicidal as a direct result of the voices. Assessment What has happened this shift: Pt is laying in bed at shift change asleep. Pt is woken up and is cooperative with 1:1 assessment. RN assessed left arm wells which are clean, dry, and open to air. Pt was offered cream for his wells, but he refused. Pt denies any SI/HI/AH/VH. S/I, H/I: denies A/VH: Denies Sleep: see sleep assessment notation ADL's: Independent Group attendance: risk control representative, no group Were meds taken: Medication compliant Any med S/E: None reported or observed Mental Status Exam Appearance: well groomed in personal clothing Eye contact: poor Behavior: Cooperative, quiet Speech: Normal rate and rhythm, sparse Mood:"I'm okay, just tired." Affect: Constricted Thought process: Linear Thought Content: wants to sleep Cognition: A&Ox4 Insight: Fair Judgment: Fair Interventions PRN's used: none Therapeutic interventions: Therapeutic communication and active listening, medication administration/monitoring/education, encouragement to attend groups, symptom identification and management, Q 15 min checks. Restraints/seclusion/emergency medication: None Justification of Continued Inpatient Treatment: Therapeutic support and medication management needed to provide stabilization of current A/H to prevent decompensation decreasing risk to patient for readmittance to in-patient unit.
[2018-09-23] MEDS: gabapentin 300mg capsule PO SCH ×4 (07:08→20:50)
[2018-09-23] MEDS: OLANZAPINE 5 MG TABLET PO SCH ×2 (07:16→12:40)
[2018-09-23 08:25] VITALS: BP 132/94
--- NOTE | 2018-09-23 10:01 | NUR ---
Nursing Progress Note: Legal hold: VOL for DTS Report received from ALFONSO Arredondo with use of SBAR. Why are they here: Pt admitted to [facility] on a 5150 for depression for DTS. Pt reports he is suffering from auditory hallucinations that tell him to kill himself. Pt has had previous suicide attempts multiple times since the age of 39 when the voices began. Pt reports feeling suicidal as a direct result of the voices. Assessment What has happened this shift:Nurse met patient in his room to give medications. Patient was laying down with a mask over his eyes to block the light. He took all medications as prescribed. He reports having slept well last night. Nine hours of sleep were recorded. His affect is expressive. Reports depression, but no suicidal ideation. He states he is still bothered by audio hallucinations but they have decreased. Wound is open to air and looks better. Patient refused wound care. S/I, H/I: denies A/VH: Positive for audio hallucinations Sleep: 9 hours ADL's: Independent Group attendance: no group today, isolative Were meds taken: Medication compliant Any med S/E: None reported or observed Mental Status Exam Appearance: well groomed, partly disheveled, and wearing his own clothes Eye contact: good Behavior: Cooperative, quiet, isolative Speech: Normal rate and rhythm, poverty of Mood: Depressed Affect: expressive, open Thought process: Linear Thought Content: audio hallucinations, isolative and sleepy today Cognition: A&Ox4 Insight: Fair Judgment: Fair Interventions PRN's used: none Therapeutic interventions: Therapeutic communication and active listening, medication administration/monitoring/education, encouragement to attend groups, symptom identification and management, Q 15 min checks. Restraints/seclusion/emergency medication: None Justification of Continued Inpatient Treatment: Therapeutic support and medication management needed to provide stabilization of current A/H to prevent decompensation decreasing risk to patient for readmittance to in-patient unit.
[2018-09-23] MEDS: OLANZapine 2.5MG tablet PO SCH (14:18)
[2018-09-23 19:55] VITALS: BP 131/96
[2018-09-23] MEDS: mirtazapine 15mg tablet PO SCH (20:50)
[2018-09-23] MEDS: OLANZapine 5mg rapidly disint. tablet PO SCH (20:50)
--- NOTE | 2018-09-23 23:20 | NUR ---
Nursing Progress Note: Legal hold: VOL for DTS Report received from ALFONSO Fermin with use of SBAR. Why are they here: Pt admitted to [facility] on a 5150 for depression for DTS. Pt reports he is suffering from auditory hallucinations that tell him to kill himself. Pt reports feeling suicidal as a direct result of the voices. Assessment What has happened this shift: Pt is visible on the unit at shift change, walking the rivera occasionally and sitting in the group room for a short time.RN assessed left arm wells which are clean, dry, and open to air. Pt denies any SI/HI/AH/VH. Pt states that he feels the medication combination he has been taking is "really helping." Pt is quiet and reserved, sits alone in the dark on his bed often, but is always polite and cooperative with assessments and conversation. S/I, H/I: denies A/VH: Denies Sleep: see sleep assessment notation ADL's: Independent Group attendance: shift supervisor film processing, no group Were meds taken: Medication compliant Any med S/E: None reported or observed Mental Status Exam Appearance: well groomed in personal clothing Eye contact: poor Behavior: Cooperative, quiet Speech: Normal rate and rhythm, sparse Mood: "feeling a little better." Affect: Constricted Thought process: Linear Thought Content: wants to sleep Cognition: A&Ox4 Insight: Fair Judgment: Fair Interventions PRN's used: none Therapeutic interventions: Therapeutic communication and active listening, medication administration/monitoring/education, encouragement to attend groups, symptom identification and management, Q 15 min checks. Restraints/seclusion/emergency medication: None Justification of Continued Inpatient Treatment: Therapeutic support and medication management needed to provide stabilization of current A/H to prevent decompensation decreasing risk to patient for readmittance to in-patient unit.
[2018-09-24 08:00] VITALS: BP 133/92
[2018-09-24] MEDS: gabapentin 300mg capsule PO SCH ×4 (08:09→20:52)
[2018-09-24] MEDS: NICOTINE POLACRILEX 2 MG LOZENGE BC PRN ×4 (09:03→19:40)
--- NOTE | 2018-09-24 12:30 | NUR ---
Nursing Progress Note: Legal hold: VOL for DTS Report received from ALFONSO Arredondo with use of SBAR. Why are they here: Pt admitted to [facility] on a 5150 for depression for DTS. Pt reports he is suffering from auditory hallucinations that tell him to kill himself. Pt has had previous suicide attempts multiple times since the age of 39 when the voices began. Pt reports feeling suicidal as a direct result of the voices. Assessment What has happened this shift: Patient was asleep at change of shift and up for breakfast. Patient states he slept well. Patient denies suicidal ideation but states he is still depressed. Patient has had some serious attempts in the past and patient states he is feeling better. RN is a little cautious about moving patient out too quickly. Patient states the voices are not as loud as they have been. Patient isolates and did not go to group today. S/I, H/I: denies A/VH: Positive for audio hallucinations Sleep: Cat naps and reads in his room. ADL's: Independent Group attendance: no group today, isolative Were meds taken: Medication compliant Any med S/E: None reported or observed Mental Status Exam Appearance: well groomed and wearing his own clothes Eye contact: good Behavior: Cooperative, quiet, isolative Speech: Normal rate and rhythm, poverty of Mood: Depressed Affect: depressed Thought process: Linear Thought Content: audio hallucinations, isolative Cognition: A&Ox4 Insight: Fair Judgment: Fair Interventions PRN's used: none Therapeutic interventions: Therapeutic communication and active listening, medication administration/monitoring/education, encouragement to attend groups, symptom identification and management, Q 15 min checks. Restraints/seclusion/emergency medication: None Justification of Continued Inpatient Treatment: Therapeutic support and medication management needed to provide stabilization of current A/H to prevent decompensation decreasing risk to patient for readmittance to in-patient unit.
[2018-09-24] MEDS: OLANZapine 2.5MG tablet PO SCH (13:56)
[2018-09-24 20:29] VITALS: BP 127/90
[2018-09-24] MEDS: mirtazapine 15mg tablet PO SCH (20:52)
[2018-09-24] MEDS: OLANZapine 5mg rapidly disint. tablet PO SCH (20:52)
--- NOTE | 2018-09-25 02:45 | NUR ---
Nursing Progress Note: Legal hold: VOL for DTS Report received from ALFONSO Fermin with use of SBAR. Why are they here: Pt admitted to [facility] on a 5150 for depression for DTS. Pt reports he is suffering from auditory hallucinations that tell him to kill himself. Pt reports feeling suicidal as a direct result of the voices. Assessment What has happened this shift: Pt is up and on the unit at shift change, walking the rivera occasionally and sitting in the group room for a snacks and watching tv.RN assessed left arm wells which are clean, dry, and open to air. Pt denies any SI/HI/AH/VH. Pt states that he feels the medication he has been taking is "really helping." Pt is quiet and reserved, sits alone in the dark on his bed often, but is always polite and cooperative with assessments and conversation. S/I, H/I: denies A/VH: Denies Sleep: see sleep assessment notation ADL's: Independent Group attendance: maintenance supervisor 2nd shift, no group Were meds taken: Medication compliant Any med S/E: None reported or observed Mental Status Exam Appearance: well groomed in personal clothing Eye contact: poor Behavior: Cooperative, quiet Speech: Normal rate and rhythm, sparse Mood: "feeling a little better." Affect: Constricted Thought process: Linear Thought Content: wants to sleep Cognition: A&Ox4 Insight: Fair Judgment: Fair Interventions PRN's used: none Therapeutic interventions: Therapeutic communication and active listening, medication administration/monitoring/education, encouragement to attend groups, symptom identification and management, Q 15 min checks. Restraints/seclusion/emergency medication: None Justification of Continued Inpatient Treatment: Therapeutic support and medication management needed to provide stabilization of current A/H to prevent decompensation decreasing risk to patient for readmittance to in-patient unit.
[2018-09-25 07:43] VITALS: BP 128/96
[2018-09-25] MEDS: gabapentin 300mg capsule PO SCH ×4 (07:47→21:16)
[2018-09-25] MEDS: OLANZAPINE 5 MG TABLET PO SCH (07:47)
--- NOTE | 2018-09-25 11:23 | NUR ---
Reassessment: Pt continues with 75-100% PO intake on vegetarian diet meeting nutrient needs. Patient's wt up 19.9 kg since admit bed scale vs standing, this amount of wt gain unlikely in 1 weeks time. LB 6/. Will continue to follow. Recommend: 1. continue vegetarian diet 2. weekly weights Addendum: 09/25/18 at [address] Amended: Links added.
[2018-09-25] MEDS: OLANZapine 2.5MG tablet PO SCH (13:05)
[2018-09-25] MEDS: NICOTINE POLACRILEX 2 MG LOZENGE BC PRN ×2 (13:06→15:43)
--- NOTE | 2018-09-25 16:15 | NUR ---
Nursing Progress Note: Legal hold: VOL for DTS Report received from ALFONSO Shelton with use of SBAR. Why are they here: Pt admitted to [facility] on a 5150 for depression for DTS. Pt reports he is suffering from auditory hallucinations that tell him to kill himself. Pt has had previous suicide attempts multiple times since the age of 39 when the voices began. Pt reports feeling suicidal as a direct result of the voices. Assessment What has happened this shift: Received patient asleep in bed at change of shift. Pt up for AM meds and breakfast. He states he slept well and denies suicidal ideation but states he is still depressed and continues to endorse hearing AH.. Pt is calm and cooperative, with modest depression and a flat affect. Reports he is feeling better and more comfortable with the idea of leaving and living with his brother. Discussed connection with community resources. Attended PM group and used nicotine lozenges throughout day. S/I, H/I: denies A/VH: Positive for audio hallucinations Sleep: Cat naps and reads in his room. ADL's: Independent Group attendance: Yes Were meds taken: Medication compliant Any med S/E: None reported or observed Mental Status Exam Appearance: well groomed and wearing his own clothes Eye contact: good Behavior: Cooperative, quiet, isolative Speech: Normal Mood: Depressed Affect: Blunted Thought process: Linear Thought Content: audio hallucinations, isolative Cognition: A&Ox4 Insight: Fair Judgment: Fair Interventions PRN's used: Nicotine Lozenges. Therapeutic interventions: Therapeutic communication and active listening, medication administration/monitoring/education, encouragement to attend groups, symptom identification and management, Q 15 min checks. Restraints/seclusion/emergency medication: None Justification of Continued Inpatient Treatment: Therapeutic support and medication management needed to provide stabilization of current A/H to prevent decompensation decreasing risk to patient for readmittance to in-patient unit.
[2018-09-25 20:00] VITALS: BP 147/100
[2018-09-25] MEDS: mirtazapine 15mg tablet PO SCH (21:16)
[2018-09-25] MEDS: OLANZapine 5mg rapidly disint. tablet PO SCH (21:16)
--- NOTE | 2018-09-26 01:46 | NUR ---
Legal hold: VOL for DTS Report received from ALFONSO Pitt with use of SBAR. Why are they here: Pt admitted to [facility] on a 5150 for depression for DTS. Pt reports he is suffering from auditory hallucinations that tell him to kill himself. Pt reports feeling suicidal as a direct result of the voices. Assessment What has happened this shift: Pt is up and on the unit at shift change, walking the rivera occasionally and sitting in the group room for a snacks and social with peers watching tv.HR INTERN assessed left arm wells which are clean, dry, and open to air. Pt denies any SI/HI/AH/VH. Pt states that he feels the medication he has been taking is "really helping." Pt was more active on the unit this shift, and is always polite and cooperative with assessments and conversation. S/I, H/I: denies A/VH: Denies Sleep: see sleep assessment notation ADL's: Independent Group attendance: shift superintendent caustic cresylate, no group Were meds taken: Medication compliant Any med S/E: None reported or observed Mental Status Exam Appearance: well groomed in personal clothing Eye contact: good Behavior: Cooperative, quiet Speech: Normal rate and rhythm, sparse Mood: "feeling a little better." Affect: Constricted Thought process: Linear Thought Content: wants to sleep Cognition: A&Ox4 Insight: Fair Judgment: Fair Interventions PRN's used: none Therapeutic interventions: Therapeutic communication and active listening, medication administration/monitoring/education, encouragement to attend groups, symptom identification and management, Q 15 min checks. Restraints/seclusion/emergency medication: None Justification of Continued Inpatient Treatment: Therapeutic support and medication management needed to provide stabilization of current A/H to prevent decompensation decreasing risk to patient for readmittance to in-patient unit.
[2018-09-26 08:00] VITALS: BP 130/92
[2018-09-26] MEDS: gabapentin 300mg capsule PO SCH ×3 (08:02→17:03)
[2018-09-26] MEDS: OLANZAPINE 5 MG TABLET PO SCH (08:03)
[2018-09-26] MEDS: OLANZapine 2.5MG tablet PO SCH (12:59)
--- NOTE | 2018-09-26 13:32 | NUR ---
NURSING PROGRESS NOTE Legal hold: VOL for DTS Report received from ALFONSO Rondon with use of SBAR. Why are they here: Pt admitted to [facility] on a 5150 for depression for DTS. Pt reports he is suffering from auditory hallucinations that tell him to kill himself. Pt has had previous suicide attempts multiple times since the age of 39 when the voices began. Pt reports feeling suicidal as a direct result of the voices. Assessment What has happened this shift: The patient is up on the unit walking about. He is med compliant. States he would like to go home today back to live with his brother. Describes living situation as "very supportive" and reports getting along good with his brother and his brother's family. He helps out with chores, goes for walks and is included in other family activities and trips. States he takes care of the cat and he like the companionship of the animal. He feels he is on the right medications. States the voices are "minimal" and acknowledges the importance of staying on his medications as prescribed. He is mildly depressed with a bland affect. Smiles at times. Attends groups. S/I, H/I: denies A/VH: Positive but minimal Sleep: naps ADL's: Independent Group attendance: Yes Were meds taken: Yes Any med S/E: None reported or observed Mental Status Exam Appearance: well groomed and wearing his own clothes Eye contact: good Behavior: Cooperative, quiet, isolative Speech: Normal Mood: Depressed Affect: Blunted Thought process: Linear Thought Content: on discharge Cognition: A&Ox4 Insight: Fair Judgment: Fair Interventions PRN's used: None Therapeutic interventions: Therapeutic communication and active listening, medication administration/monitoring/education, encouragement to attend groups, symptom identification and management, Q 15 min checks. Restraints/seclusion/emergency medication: None Justification of Continued Inpatient Treatment: Therapeutic support and medication management needed to provide stabilization of current A/H to prevent decompensation decreasing risk to patient for readmittance to in-patient unit.
[2018-09-26] MEDS ORDERED: NICO-668 BC (17:24)
[2018-09-26] MEDS ORDERED: OLAN2.5T3 PO (17:24)
[2018-09-26] MEDS ORDERED: OLAN15TA17 PO (17:24)
[2018-09-26] MEDS ORDERED: MIRT30TA8 PO (17:24)
[2018-09-26] MEDS ORDERED: OLAN5TAB26 PO (17:24)
[2018-09-26] MEDS ORDERED: GABA600T13 PO (17:24)
== END 2018-09-26 19:55 | disposition home or self-care (01) | DRG 885 ==
LOC: ADULT MH 13:25
PROVIDERS: ADMIT Psychiatry & Neurology Psychiatry; ATTEND Psychiatry & Neurology Psychiatry
DX: F25.1 Schizoaffective disorder, depressive type (principal); R45.851 Suicidal ideations; N48.30 Priapism, unspecified; E78.5 Hyperlipidemia, unspecified; F17.210 Nicotine dependence, cigarettes, uncomplicated; F32.9 Major depressive disorder, single episode, unspecified; I10 Essential (primary) hypertension; Z82.0 Family history of epilepsy and other diseases of the nervous system; Z71.6 Tobacco abuse counseling
CPT/HCPCS: 36415; 80053; 80061; 80305; 80320; 81003; 83036; 84443; 85025; 87070; 99285; J3490; Q0177